=== PATIENT | female | born 1970 | race Hispanic/Latino ===

== ENCOUNTER 2019-09-13 07:14 | Day surgery (SDC) | payer BC ==
[2019-09-12 15:30] VITALS: BP 116/61
[2019-09-12 15:51] LABS: BASOPHILS % (AUTO) 0.4 % (0.0-5.0); EOSINOPHILS % (AUTO) 0.7 % (0.0-8.0); HEMATOCRIT 35.6 % (36-48); LYMPHOCYTES % (AUTO) 21.7 % (21.0-51.0); MEAN CORPUSCULAR HEMOGLOBIN 31.9 pg (27.0-33.0); MEAN CORPUSCULAR HGB CONC 32.3 g/dL (32.0-36.0); MEAN CORPUSCULAR VOLUME 98.9 fL (79-99); MONOCYTES % (AUTO) 7.8 % (3.0-13.0); NEUTROPHILS % (AUTO) 69.2 % (40.0-77.0); PLATELET COUNT (AUTO) 263 K/uL (130-400); RED CELL DISTRIBUTION WIDTH 14.6 % (11.0-15.5); WHITE BLOOD COUNT (AUTO) 8.6 K/uL (4.8-10.8)
[2019-09-12 15:59] LABS: APPEARANCE,URINE Turbid (CLEAR); BILIRUBIN,URINE Negative (NEGATIVE); COLOR,URINE Yellow (YELLOW); GLUCOSE, URINE (UA) Negative (NEGATIVE); KETONES,URINE Negative (NEGATIVE); LEUKOCYTE ESTERASE ,URINE Small (NEGATIVE); NITRATE,URINE Negative (NEGATIVE); OCCULT BLOOD,URINE Small (NEGATIVE); PH,URINE 8.5 (5.0-8.0); PROTEIN,URINE POS 2+ mg/dL (NEGATIVE)
[2019-09-12 16:05] LABS: CREATININE 0.8 mg/dL (0.5-1.5); INR 0.97 (0.85-1.15); PARTIAL THROMBOPLASTIN TIME 25.3 SEC (26.3-35.5); POTASSIUM 4.6 mmol/L (3.5-5.1); PROTHROMBIN TIME 10.2 SEC (9.6-11.6)
[2019-09-12 16:18] LABS: AMORPHOUS SEDIMENT,UR Many /LPF (None Seen); BACTERIA,URINE Few /HPF (None Seen); SQUAMOUS EPITHELIAL CELL,UR None Seen /HPF (0-2)
--- NOTE | 2019-09-12 19:48 | NUR ---
NOTIFIED DR. MCCARTNEY OF ABNORMAL UA LABS, NO NEW ORDERS, OK TO PROCEED.
[2019-09-13] VITALS (9 sets, daily range): BP systolic 93–108; BP diastolic 51–72
[~2019-09-13] VITALS: Ht 162.6 cm; Wt 69.9 kg
[~2019-09-13 07:14] MED LIST: BACL10TA PO; CELEBREX; GABAPENTIN; LEVO100T12 PO; NAPR-1023 PO; SODIUM CHLORIDE 0.9% 500ML 500 ML IV SCH
--- NOTE | 2019-09-13 07:20 | NUR ---
ASSESSMENT PT HERE FOR PROCEDURE. DENIES ANY PAIN, SOB AT THIS TIME.
[2019-09-13] MEDS ORDERED: HEPARIN SODIUM 1000UNIT/ML 10ML VIAL ONE (08:21)
[2019-09-13] MEDS ORDERED: NITROGLYCERIN 5 MG/ML 10 ML VIAL IV ONE (08:22)
[2019-09-13] MEDS ORDERED: FENTANYL CITRATE PF 50 MCG/1 ML 2ML VIAL ONE (08:22)
[2019-09-13] MEDS ORDERED: MIDAZOLAM HCL 1 MG/ML 2ML VIAL ONE (08:22)
[2019-09-13] MEDS ORDERED: LIDOCAINE HCL 2% 20ML ONE (08:23)
[2019-09-13] MEDS ORDERED: NICARDIPINE HCL 25 MG/10 ML ML IV ONE (08:27)
[2019-09-13] MEDS ORDERED: IOHEXOL 350 MG/ML 100ML INFUS..BTL IV ONE (08:28)
[2019-09-13] MEDS ORDERED: IOHEXOL-350 50ML VIAL IV ONE (08:28)
--- NOTE | 2019-09-13 08:30 | NUR ---
PROCEDURE PT TAKEN TO PROCEDURE VIA POWER GENERATING PLANT OPERATOR STAFF BRANDY ROSALES.
[2019-09-13] MEDS ORDERED: SODIUM CHLORIDE 0.9% 1000ML 1,000 ML IV ONE (08:34)
[2019-09-13] MEDS ORDERED: FLUT15.845 NS (08:44)
[2019-09-13] MEDS ORDERED: AMIT10TA6 PO (08:44)
[2019-09-13] MEDS ORDERED: TOPI50TA24 PO (08:44)
[2019-09-13] MEDS ORDERED: PRED10TA3 PO (08:44)
[2019-09-13] MEDS ORDERED: BUPR-47 PO (08:44)
[2019-09-13] MEDS ORDERED: CLON1TAB12 PO (08:44)
--- NOTE | 2019-09-13 10:00 | NUR ---
PROCEDURE RECEIVED PT FROM DATA ENTRY ASSOCIATE STAFF BRANDY UMAÑA. PT AAOX3. INSTRUCTED ON IMPORTANCE OF KEEPING RIGHT LEG STRAIGHT AND NOT LIFTING HEAD OT LEG UP OFF OF BED. PT VERBALIZED UNDERSTANDING.
--- NOTE | 2019-09-13 13:17 | NUR ---
dischsarged. oral and written discharge instructions given to pt and pts sister. no other questions at this time.
== END 2019-09-13 13:17 | disposition home or self-care (01) ==
LOC: DAH 07:14
PROVIDERS: ATTEND Internal Medicine Cardiovascular Disease
DX: I25.10 Atherosclerotic heart disease of native coronary artery without angina pectoris (principal); R94.39 Abnormal result of other cardiovascular function study; E03.9 Hypothyroidism, unspecified; Z98.890 Other specified postprocedural states; Z90.710 Acquired absence of both cervix and uterus; Z79.899 Other long term (current) drug therapy; Z79.01 Long term (current) use of anticoagulants; Z72.89 Other problems related to lifestyle; Z83.3 Family history of diabetes mellitus
CPT/HCPCS: 36415; 71045; 80048; 81001; 85025; 85610; 85730; 93005; 93458; A4215; A4216; A4221; A4222; A4223 ×3; A4606; A4663; C1760; C1894 ×3; J1644; J2250; J3010; J3490 ×3; J7030; Q9965; Q9967; 99152; 99153; 99156; 99157

== ENCOUNTER → 2020-04-06 | Outpatient (CLI) | payer BC | END | disposition home or self-care (01) | LOC: RAH 08:45 | PROVIDERS: ATTEND Obstetrics & Gynecology | DX: Z12.31 Encounter for screening mammogram for malignant neoplasm of breast (principal) ==

== ENCOUNTER → 2022-03-31 | Outpatient (CLI) | payer OTHER ==
[~2022-03-31] MED LIST changes: +AMIT10TA6 PO; +BUPR-49 PO; +CLON1TAB12 PO; +FLUT15.845 NS; +GADOTERATE MEGLUMINE 10 MMOL/20 ML VIAL IV ONE; +PRED10TA3 PO; -SODIUM CHLORIDE 0.9% 500ML 500 ML IV SCH; +TOPI50TA24 PO
== END | disposition home or self-care (01) ==
LOC: RAH 08:53
PROVIDERS: ATTEND Family Medicine
DX: M43.22 Fusion of spine, cervical region (principal); M54.12 Radiculopathy, cervical region; Z98.1 Arthrodesis status
CPT/HCPCS: 72156; A9575

== ENCOUNTER 2022-09-27 14:30 | Emergency (ER) | payer OTHER ==
[~2022-09-27] VITALS: Ht 162.6 cm; Wt 77.6 kg
[~2022-09-27 14:30] MED LIST changes: -GADOTERATE MEGLUMINE 10 MMOL/20 ML VIAL IV ONE
[2022-09-27 15:23] LABS: BASOPHILS % (AUTO) 0.4 % (0.0-5.0); EOSINOPHILS % (AUTO) 1.2 % (0.0-8.0); HEMATOCRIT 36.8 % (36-48); LYMPHOCYTES % (AUTO) 30.7 % (21.0-51.0); MEAN CORPUSCULAR HEMOGLOBIN 31.9 pg (27.0-33.0); MEAN CORPUSCULAR HGB CONC 33.2 g/dL (32.0-36.0); MEAN CORPUSCULAR VOLUME 96.3 fL (79-99); MONOCYTES % (AUTO) 7.5 % (3.0-13.0); PLATELET COUNT (AUTO) 196 K/uL (130-400); RED BLOOD CELL COUNT(AUTO) 3.82 MIL/uL (4.00-5.50); RED CELL DISTRIBUTION WIDTH 13.9 % (11.0-15.5); WHITE BLOOD COUNT (AUTO) 8.3 K/uL (4.8-10.8)
[2022-09-27 15:30] LABS: APPEARANCE,URINE CLEAR (CLEAR); BILIRUBIN,URINE NEGATIVE (NEGATIVE); COLOR,URINE LIGHT-YELLOW (YELLOW); GLUCOSE, URINE (UA) NEGATIVE (NEGATIVE); KETONES,URINE NEGATIVE (NEGATIVE); LEUKOCYTE ESTERASE ,URINE NEGATIVE Leu/uL (NEGATIVE); NITRATE,URINE NEGATIVE (NEGATIVE); OCCULT BLOOD,URINE NEGATIVE (NEGATIVE); PROTEIN,URINE NEGATIVE (NEGATIVE); UROBILINOGEN,URINE 0.2 mg/dL (0.2-1.0)
[2022-09-27] MEDS ORDERED: 0.9%NACL 1000ML 1,000 ML IV ONE (15:30)
[2022-09-27 15:42] LABS: CREATININE 0.9 mg/dL (0.5-1.5); POTASSIUM 3.9 mmol/L (3.5-5.1)
[2022-09-27 15:46] LABS: ALBUMIN 3.9 g/dL (3.5-5.0); TOTAL PROTEIN, SERUM 7.3 g/dL (6.0-8.3)
[2022-09-27] MEDS ORDERED: KETOROLAC 30MG VIAL (30MG/ML) ONE (16:48)
[2022-09-27] MEDS ORDERED: KETOROLAC 30MG VIAL (30MG/ML) IVP ONE (17:00)
[2022-09-27] MEDS ORDERED: IOHEXOL 350 MG/ML 100ML INFUS..BTL IV ONE (17:07)
[2022-09-27] MEDS ORDERED: NA P133E22 RC (18:20)
[2022-09-27 18:25] VITALS: BP 110/57
== END 2022-09-27 18:33 | disposition home or self-care (01) ==
LOC: EDH 14:30
DX: K59.00 Constipation, unspecified (principal); E27.8 Other specified disorders of adrenal gland; M19.90 Unspecified osteoarthritis, unspecified site; M79.7 Fibromyalgia; R51.9 Headache, unspecified; Z90.710 Acquired absence of both cervix and uterus; Z79.899 Other long term (current) drug therapy; Z98.890 Other specified postprocedural states
CPT/HCPCS: 99285; 74177; 96374; 96361; 76857; 80053; 83690; 85025; 81003; 36415; J1885; Q9967

== ENCOUNTER 2023-07-31 10:46 | Emergency (ER) | payer OTHER ==
[~2023-07-31] VITALS: Ht 162.6 cm; Wt 75.7 kg
[~2023-07-31 10:46] MED LIST changes: -AMIT10TA6 PO; -BACL10TA PO; -BUPR-49 PO; -CELEBREX; -CLON1TAB12 PO; -FLUT15.845 NS; -GABAPENTIN; -LEVO100T12 PO; +LEVO50TA11 PO; -NAPR-1023 PO; -PRED10TA3 PO; -TOPI50TA24 PO
[2023-07-31 10:55] VITALS: BP 118/77; PULSE 79; RESP 20
[2023-07-31 11:45] LABS: ADD UA MICROSCOPIC NO; APPEARANCE,URINE CLEAR (CLEAR); BILIRUBIN,URINE NEGATIVE (NEGATIVE); COLOR,URINE COLORLESS (YELLOW); GLUCOSE, URINE (UA) NEGATIVE (NEGATIVE); KETONES,URINE NEGATIVE (NEGATIVE); LEUKOCYTE ESTERASE ,URINE NEGATIVE Leu/uL (NEGATIVE); NITRATE,URINE NEGATIVE (NEGATIVE); OCCULT BLOOD,URINE NEGATIVE (NEGATIVE); PH,URINE 6.5 (5.0-8.0); PROTEIN,URINE NEGATIVE (NEGATIVE); UROBILINOGEN,URINE 0.2 mg/dL (0.2-1.0)
[2023-07-31] MEDS ORDERED: DICL100T85 PO (12:14)
[2023-07-31] MEDS ORDERED: KETOROLAC 30MG VIAL (30MG/ML) IM ONE (12:30)
[2023-07-31] MEDS ORDERED: ACETAMINOPHEN WITH CODEINE 1 TAB TAB PO ONE (12:30)
== END 2023-07-31 12:23 | disposition home or self-care (01) ==
LOC: EDH 10:46
DX: M06.9 Rheumatoid arthritis, unspecified (principal); M79.7 Fibromyalgia; E03.9 Hypothyroidism, unspecified; M19.90 Unspecified osteoarthritis, unspecified site; Z90.710 Acquired absence of both cervix and uterus; Z98.890 Other specified postprocedural states
CPT/HCPCS: 99283; 81003; 81025; 96372; J1885

== ENCOUNTER 2024-02-29 14:34 | Emergency (ER) | payer OTHER ==
[~2024-02-29] VITALS: Ht 162.6 cm; Wt 81.6 kg
[~2024-02-29 14:34] MED LIST changes: +DICL100T85 PO
[2024-02-29 15:33] LABS: BASOPHILS # (AUTO) 0.08 K/uL (0.00-0.20); BASOPHILS % (AUTO) 0.8 % (0.0-5.0); EOSINOPHILS # (AUTO) 0.22 K/uL (0.00-0.70); EOSINOPHILS % (AUTO) 2.2 % (0.0-8.0); HEMATOCRIT 38.6 % (36-48); IMMATURE GRANULOCYTE ABSOLUTE 0.05 K/uL (0-1); LYMPHOCYTES # (AUTO) 3.9 K/uL (1.0-4.8); LYMPHOCYTES % (AUTO) 39.3 % (21.0-51.0); MEAN CORPUSCULAR HEMOGLOBIN 31.9 pg (27.0-33.0); MEAN CORPUSCULAR HGB CONC 33.2 g/dL (32.0-36.0); MEAN CORPUSCULAR VOLUME 96.3 fL (79-99); MONOCYTES # (AUTO) 0.8 K/uL (0.1-1.0); MONOCYTES % (AUTO) 8.1 % (3.0-13.0); NEUTROPHILS # (AUTO) 4.9 K/uL (1.8-7.7); NEUTROPHILS % (AUTO) 49.1 % (40.0-77.0); PLATELET COUNT (AUTO) 294 K/uL (130-400); RED BLOOD CELL COUNT(AUTO) 4.01 MIL/uL (4.00-5.50); RED CELL DISTRIBUTION WIDTH 13.8 % (11.0-15.5)
[2024-02-29] MEDS: SOLU-MEDROL 125MG VIAL IVP ONE (15:40)
[2024-02-29 15:41] LABS: CREATININE 0.7 mg/dL (0.5-1.0); POTASSIUM 3.1 mmol/L (3.5-5.1)
[2024-02-29] MEDS: KETOROLAC 30MG VIAL (30MG/ML) IVP ONE (15:41)
[2024-02-29 15:45] VITALS: PULSE 77; RESP 18
[2024-02-29] MEDS: ALBUTEROL 0.083% 2.5 MG/3 ML INH IH ONE (15:46)
[2024-02-29 15:50] LABS: ALBUMIN 3.8 g/dL (3.5-5.0); BILIRUBIN,TOTAL 0.3 mg/dL (0.2-1.0); TOTAL PROTEIN, SERUM 7.7 g/dL (6.0-8.3)
[2024-02-29] MEDS ORDERED: ALBUHFA IH (16:27)
[2024-02-29] MEDS ORDERED: METH4TAB3 PO (16:27)
[2024-02-29] MEDS ORDERED: BENZ-39 PO (16:27)
[2024-02-29] MEDS ORDERED: POTASSIUM BICARB/CIT AC 25 MEQ TABLET.EFF PO ONE (16:30)
[2024-02-29 16:53] VITALS: BP 114/70; PULSE 84; RESP 20; O2SAT 98
== END 2024-02-29 16:58 | disposition home or self-care (01) ==
LOC: EDH 14:34
DX: M94.0 Chondrocostal junction syndrome [Tietze] (principal); E87.6 Hypokalemia; R06.00 Dyspnea, unspecified; Z87.01 Personal history of pneumonia (recurrent); Z79.899 Other long term (current) drug therapy; Z98.890 Other specified postprocedural states
CPT/HCPCS: 99285; 96374; 71045; 96375; 84484; 80053; 85025; 87040 ×2; 83605; 36415; 93005; 94640; J2919; J1885

== ENCOUNTER 2024-05-21 13:07 | Emergency (ER) | payer OTHER ==
[~2024-05-21] VITALS: Ht 162.6 cm; Wt 76.2 kg
[~2024-05-21 13:07] MED LIST changes: +ALBUHFA IH; +BENZ-39 PO; +METH4TAB3 PO
[2024-05-21] MEDS: acetaMINOPHEN 500 MG TABLET PO ONE (13:59)
[2024-05-21] MEDS: dexaMETHasone SOD PHOSPHATE 4 MG/ML 1ML VIAL IM ONE (14:04)
[2024-05-21 14:06] LABS: RAPID GROUP A STREP negative (NEGATIVE)
[2024-05-21 14:16] LABS: INFLUENZA TYPE A Negative For Type A (NEGATIVE); INFLUENZA TYPE B Negative For Type B (NEGATIVE)
[2024-05-21 14:34] LABS: BASOPHILS # (AUTO) 0.02 K/uL (0.00-0.20); BASOPHILS % (AUTO) 0.3 % (0.0-5.0); EOSINOPHILS # (AUTO) 0.09 K/uL (0.00-0.70); EOSINOPHILS % (AUTO) 1.4 % (0.0-8.0); HEMATOCRIT 39.9 % (36-48); IMMATURE GRANULOCYTE ABSOLUTE 0.02 K/uL (0-1); LYMPHOCYTES # (AUTO) 1.3 K/uL (1.0-4.8); LYMPHOCYTES % (AUTO) 19.2 % (21.0-51.0); MEAN CORPUSCULAR HEMOGLOBIN 31.4 pg (27.0-33.0); MEAN CORPUSCULAR HGB CONC 33.3 g/dL (32.0-36.0); MEAN CORPUSCULAR VOLUME 94.3 fL (79-99); MONOCYTES # (AUTO) 0.7 K/uL (0.1-1.0); MONOCYTES % (AUTO) 9.8 % (3.0-13.0); NEUTROPHILS # (AUTO) 4.6 K/uL (1.8-7.7); PLATELET COUNT (AUTO) 186 K/uL (130-400); RED BLOOD CELL COUNT(AUTO) 4.23 MIL/uL (4.00-5.50); RED CELL DISTRIBUTION WIDTH 13.9 % (11.0-15.5); WHITE BLOOD COUNT (AUTO) 6.6 K/uL (4.8-10.8)
[2024-05-21 14:36] LABS: COVID19 (SARS ANTIGEN RAPID) POSITIVE FOR SARS AG (NEGATIVE)
[2024-05-21 14:56] LABS: CREATININE 0.7 mg/dL (0.5-1.0); POTASSIUM 3.6 mmol/L (3.5-5.1)
[2024-05-21 15:00] LABS: APPEARANCE,URINE CLEAR (CLEAR); BILIRUBIN,URINE NEGATIVE (NEGATIVE); COLOR,URINE LIGHT-YELLOW (YELLOW); GLUCOSE, URINE (UA) NEGATIVE (NEGATIVE); KETONES,URINE NEGATIVE (NEGATIVE); LEUKOCYTE ESTERASE ,URINE NEGATIVE Leu/uL (NEGATIVE); NITRATE,URINE NEGATIVE (NEGATIVE); OCCULT BLOOD,URINE NEGATIVE (NEGATIVE); PROTEIN,URINE NEGATIVE (NEGATIVE); UROBILINOGEN,URINE 0.2 mg/dL (0.2-1.0)
[2024-05-21 15:03] LABS: ADD UA MICROSCOPIC YES
[2024-05-21 15:08] LABS: MUCUS,URINE RARE LPF (None Seen); SQUAMOUS EPITHELIAL CELL,UR RARE /HPF (0-2); WBC,URINE 0-1 /HPF (0-1)
[2024-05-21] MEDS ORDERED: AZIT250T9 PO (15:14)
[2024-05-21 15:33] VITALS: BP 128/79; PULSE 97; RESP 20; O2SAT 97
== END 2024-05-21 15:38 | disposition home or self-care (01) ==
LOC: EDH 13:07
DX: U07.1 COVID-19 (principal); R05.9 Cough, unspecified; R50.9 Fever, unspecified; M19.90 Unspecified osteoarthritis, unspecified site; M79.7 Fibromyalgia; Z90.710 Acquired absence of both cervix and uterus
CPT/HCPCS: 99284; 71045; 87426; 80048; 85025; 87880; 87804 ×2; 83605; 81001; 36415; 96372; J1100

== ENCOUNTER 2025-09-08 06:33 | Observation (INO) | payer BC, OTHER ==
[2025-09-04 09:59] LABS: IMMATURE GRANULOCYTE ABSOLUTE 0.02 K/uL (0-1); NUCLEATED RED BLOOD CELLS 0.0 % (0.0-0.19); PLATELET COUNT (AUTO) 240 K/uL (130-400); RED BLOOD CELL COUNT(AUTO) 3.96 MIL/uL (4.00-5.50); RED CELL DISTRIBUTION WIDTH 12.8 % (11.0-15.5); WHITE BLOOD COUNT (AUTO) 5.5 K/uL (4.8-10.8)
--- NOTE | 2025-09-04 10:00 | NUR ---
RE: IS INITIAL IS INITIAL TEACHING DONE BY RT CHUYITA DURING PREOP.
[2025-09-04 10:09] LABS: INR 0.96 (0.85-1.15)
[2025-09-04 10:11] LABS: CREATININE 0.7 mg/dL (0.5-1.0); GLOMERULAR FILTR. RATE CALC 101.0 mL/min (>90); GLUCOSE,RANDOM 94.0 mg/dL (70-105); SODIUM SERUM 143.0 mmol/L (136-145); UREA NITROGEN, BLOOD 14.0 mg/dL (7-18)
--- NOTE | 2025-09-04 10:12 | EKG ---
[facility] Test Date: 2025-09-04 Test Time: 09:48:55 Pat Name: PLACIDO FORTUNE Department: [facility] Room: Gender: F Pick Up Worker: [id number] : [id number] Requested By: RAKESH QUINTANA Order Number: [id number] Reading MD: Karen Felix Measurements Intervals [place] Rate: 66 P: 26 OH: 177 QRS: -18 QRSD: 91 T: 11 QT: 397 QTc: 418 Interpretive Statements Sinus rhythm Low voltage, precordial leads Compared to ECG 02/29/2024 14:46:37 Low QRS voltage now present Electronically Signed On 09-04-2025 21:15:11 HARDWARE TEST ENGINEER by Karen Felix Please click the below link to view image of tracing.
[2025-09-04 10:19] VITALS: BP 107/57; PULSE 75; RESP 18; TEMP 97.3
[2025-09-08] VITALS (25 sets, daily range): BP systolic 94–137; BP diastolic 62–80; PULSE 59–131; RESP 13–18; TEMP 97.4–98.3; O2SAT 98
[~2025-09-08] VITALS: Ht 162.6 cm; Wt 75.7 kg
[2025-09-08] MEDS ORDERED: TRANEXAMIC ACID 1000MG/10ML ONE (07:52)
[2025-09-08] MEDS ORDERED: MIDAZOLAM HCL 1 MG/ML 2ML VIAL ONE (08:58)
[2025-09-08] MEDS ORDERED: LIDOCAINE PF 100MG/5ML (2%) SYRINGE 5ML ONE (09:01)
[2025-09-08] MEDS: TRANEXAMIC ACID 1000MG/10ML IV ONE (09:11)
[2025-09-08] MEDS ORDERED: PROMETHAZINE HCL 25 MG/ML 1ML AMPULE IM PRN (09:30)
[2025-09-08] MEDS ORDERED: FERROUS FUMARATE 324 MG TABLET PO PRN (09:30)
[2025-09-08] MEDS ORDERED: PoTASSium chloRIDE 20MEQ ER 20 MEQ ERTAB PO PRN (09:30)
[2025-09-08] MEDS ORDERED: PoTASSium chl 10% ELIXIR 20MEQ 20 MEQ/15 ML UDCUP PO PRN (09:30)
[2025-09-08] MEDS: 0.9%NACL 1000ML 1,000 ML IV SCH (09:30)
[2025-09-08] MEDS ORDERED: BACLOFEN 10 MG TABLET PO PRN (10:00)
[2025-09-08] MEDS: LACTATED RINGERS 1000ML 1,000 ML IV ONE (10:13)
--- NOTE | 2025-09-08 12:39 | NUR ---
ADMISSION PATIENT ARRIVED TO UNIT FROM RECOVERY ROOM IN 07/11 PAIN TO RIGHT KNEE. ADMINISTERED NORCO 5/325MG 2 TABS PO ORDERED. PLACED ON NS 100ML/HR. PLACED ON SCDS. ICE BAGS PROVIDED. EDUCATED PATIENT ON THE IMPORTANCE OF INCENTIVE SPIROMETER USE, TO USE 10 TIMES Q1H. PATIENT VERBALIZED UNDERSTANDING. VITAL SIGNS STABLE.
[2025-09-08] MEDS: HYDROcodone/APAP 5/325 1 TAB TABLET PO PRN (12:58)
--- NOTE | 2025-09-08 13:06 | HMCIMG ---
EXAM: Xray Right Knee TECHNIQUE: 2 View. CLINICAL HISTORY: S/P RT TKA SURGERY (Hx) / S/P RT TKA SURGERY COMPARISON: No previous Xray Right Knee FINDINGS: Bones and Joint: Status post total knee arthroplasty with patellar resurfacing. Prosthetic components are in optimal position and alignment. No evidence of fracture, dislocation, or hardware loosening. Postoperative Changes: Acute postoperative changes noted, including; soft tissue swelling and post-surgical emphysema. No abnormal fluid collection or bernice-prosthetic latency. Soft Tissues: No suspicious calcification. IMPRESSION 1. Status post total knee arthroplasty with patellar resurfacing. 2. Prosthetic device in optimal position. 3. Postoperative changes present, including subcutaneous emphysema and soft tissue swelling, consistent with recent surgery. 4. No evidence of hardware complication, fracture, or dislocation. 5. Recommend routine postoperative follow?up and correlation with clinical recovery. /[place]
--- NOTE | 2025-09-08 16:37 | OP ---
Operative Note: DATE OF PROCEDURE: 09/08/25 PREOPERATIVE DIAGNOSIS: Right knee osteoarthritis. POSTOPERATIVE DIAGNOSIS: Right knee osteoarthritis. PROCEDURE PERFORMED: Right knee total knee arthroplasty. SURGEON: Gely Claudio MD CAMPGROUND HAND: Pravin Henderson. ANESTHESIA: General with adductor canal block. ANESTHESIA: MACHINE VENEER REPAIRER Richmond Kimbrough. ESTIMATED BLOOD LOSS: 50cc. COMPLICATIONS: None. DRAINS: None. SPECIMENS REMOVED: resected bone. Not sent to pathology. IMPLANTS: [employer] II BCS size 5 Oxinium femur, size 3 tibial base plate, 35 x 7.5 mm patella, 9 mm polyethylene STATEMENT OF MEDICAL NECESSITY: The patient is a 55-year-old female who suffers from right knee osteoarthritis failing conservative management. After discussion of the risks, benefits, and alternatives with the patient, they voluntarily agreed to undergo the aforementioned procedure. DESCRIPTION OF PROCEDURE: Patient was properly identified in the preoperative holding area. Surgical site marking was verified and surgery consent reviewed. The patient was then taken to the operating room and placed in supine position on the OR table. After induction of general anesthesia, preoperative antibiotics were given, all bony prominences were well-padded, and a well padded tourniquet was applied but not inflated at this time. The right lower extremity was then prepped and draped in usual sterile fashion. Surgical time out was done verifying correct surgery, side, site, and location to be performed. We then began the procedure by exsanguinating the limb using an Esmarch and inflating the tourniquet to 350 mmHg. At this point, we made an anterior midline incision using a 10 blade, coming down sharply the level of the fascia. Skin flaps were elevated medially and laterally. We then obtained a clean 10 blade and performed a standard medial parapatellar arthrotomy. We excised the infrapatellar fat pad. We performed our soft tissue releases off of the tibia. We transected the ACL and removed the anterior portion of the medial & lateral meniscus. We then brought the knee into hyperflexion with the patella everted. We used our entry reamer to enter the femoral canal. We then placed our intramedullary cutting guide for our distal femoral cutting block. We then performed our distal femoral osteotomy ensuring appropriate rotation and removed the bony wafer. We then removed these pins and block and then used jig 2 to size the distal femur with the after mentioned size found. We then placed our 5-in-1 cutting block in 3 degrees of external rotation and took our 5 cuts ensuring to protect the patellar tendon and the collateral ligaments. We then removed the cutting block and our bony fragments using a curved osteotome. We then placed our PCL retractor subluxating the tibia anteriorly. Using an extra medullary tibial cutting guide, we hung the block for our proximal tibial cut taking 2 mm off the more diseased portion. Prior to pinning this block in place, we ensured appropriate varus/valgus alignment and posterior slope similar to the coeur d'alene slope of the patient's knee. We then performed our proximal tibial osteotomy and removed the bony wafer using Bovie electrocautery to release any remaining soft tissue attachments. We then used our tibial sizing paddle and checked once more for varus & valgus alignment and found this to be appropriate. At this point, we pinned our tibial paddle in place. We then removed the PCL retractor and subluxated the tibia posteriorly while we placed our femoral trial component. We then finished preparing the notch with the reamer and box chisel. The notch portion of the trial femoral component was then placed. A posterior stabilized polyethylene, size 9 trial was placed. The knee was then taken through range of motion and found to have stable full range of motion. We then placed a bump under the ankle and everted the patella to perform our freehand cut of the undersurface the patella. We then sized our patella and reamed to the lug holes for this. We placed our trial patellar component and begin to take the knee through range of motion. The patella had lateral tracking that improved with the a small lateral release. At this point we began removing our trial components and punched the tibial keel prior to r emoving our tibial trial component. Final components were opened and cement was mixed on the back table while we injected local cocktail in the posterior capsule. We then thoroughly irrigated out the bone and dried the bony surfaces. We cemented our tibial component in place ensuring to remove excess cement and placed our trial polyethylene. We then cemented our femoral component in place once again taking time to ensure excess cement was removed leg was brought into full extension to help squeeze t he excess cement from around the femoral component. We then brought the knee back in a flexion to remove this portion of the cement at this point we placed the ankle in a bump thoroughly irrigated off the patellar component and cemented our patellar component in standard fashion again removing excess cement. While we waited for the cement to cure, we thoroughly irrigated out the wound with normal saline. Once our cement had cured, we took the knee through a range of motion and found full and stable range of motion. We then elected to use the size 9 polyethylene and removed our trial polyethylene. We impacted our final polyethylene component in place in standard fashion and took the knee through a range of motion check once more. This was satisfactory so we began to repair the arthrotomy using #1 Vicryl in interrupted [id number] fashion. Subcutaneous tissue was repaired using 2-0 Vicryl. Running subcuticular 3-0 Monocryl stitch with Dermabond placed over this for the skin. We then applied a foam barrier dressing and a pressure dressing consisting of 4 x 4's fluffs and an Nadeem wrap. The tourniquet was then deflated. Patient was awakened from anesthesia, and they were taken to the recovery room in stable condition. GELY CLAUDIO MD Sep 08, 2025 16:37
--- NOTE | 2025-09-08 17:30 | NUR ---
ORTHO COORDINATOR: TEACHING REGARDING DVT AND PNEUMONIA PREVENTION, PAIN EXPECTATIONS AND PAIN MANAGEMENT. PATIENT IN BED, ICE PACK TO R KNEE. B SCD SLEEVES PRESENT AND FUNCTIONING. INCENTIVE SPIROMETER ON BEDSIDE TRAY. PATIENT RETURN DEMONSTRATED PROPER USE OF INCENTIVE SPIROMETER AND VERBALIZED PROPER FREQUENCY OF USE FOR DEVICE, RATIONALE PROVIDED. PATIENT RETURN DEMONSTRATED PROPER FOOT FLEXION AND EXTENSION EXERCISES, RATIONALE PROVIDED. PAIN MANAGEMENT STRATEGY REVIEWED. SCHEDULED AND PRN PAIN MEDICATIONS REVIEWED. NUMERIC PAIN SCALE REVIEWED. PATIENT INSTRUCTED TO REQUEST ALL PAIN MEDICATIONS AND PROVIDED A NUMERIC PAIN VALUE AND TYPE OF PAIN. SET EXPECTATION FOR PATIENT TO SHOWER TOMORROW, RATIONALE PROVIDED. PATIENT INTENDS TO DISCHARGE HOME WITH HOME HEALTH PHYSICAL THERAPY. HOME HEALTH PHYSICAL THERAPY REVIEWED. NO ADDITIONAL QUESTIONS OR CONCERNS AT THIS TIME. PATIENT CURRENTLY RATES PAIN 8/10 MUSCLE SPASMS. PRIMARY NURSE NOTIFIED OF CURRENT PAIN LEVEL AND TYPE OF PAIN. PRIMARY NURSE ACKNOWLEDGED COMMUNICATION.
[2025-09-08] MEDS: CYCLOBENZAPRINE HCL 10 MG TABLET PO PRN (18:00)
[2025-09-08] MEDS: PROGESTERONE MICRONIZED 100 MG PO SCH (20:38)
[2025-09-08] MEDS ORDERED: NON-FORMULARY MEDICATION 1 EACH (Fexofenadine/Pseudoephedrine (Allegra-D 24 Hour Tablet) 1 PO SCH (21:00)
[2025-09-09] VITALS: BP 122/69; PULSE 69; RESP 18; TEMP 98.4
[2025-09-09 03:47] LABS: NUCLEATED RED BLOOD CELLS 0.0 % (0.0-0.19); PLATELET COUNT (AUTO) 206.0 K/uL (130-400); RED BLOOD CELL COUNT(AUTO) 3.1 MIL/uL (4.00-5.50); RED CELL DISTRIBUTION WIDTH 13.2 % (11.0-15.5); WHITE BLOOD COUNT (AUTO) 11.0 K/uL (4.8-10.8)
[2025-09-09 03:52] LABS: CREATININE 0.7 mg/dL (0.5-1.0); GLOMERULAR FILTR. RATE CALC 101.0 mL/min (>90); GLUCOSE,RANDOM 129.0 mg/dL (70-105); SODIUM SERUM 138.0 mmol/L (136-145); UREA NITROGEN, BLOOD 7.0 mg/dL (7-18)
[2025-09-09 04:00] VITALS: BP_SYST 102; BP_SYST 122; BP_DIAS 57; BP_DIAS 69; PULSE 54; PULSE 69; RESP 18; TEMP 98; TEMP 98.4
[2025-09-09] MEDS: CALCIUM CARB 500MG PO PRN (06:08)
[2025-09-09 08:00] VITALS: BP 99/58; PULSE 78; RESP 17; TEMP 98.6
--- NOTE | 2025-09-09 08:10 | PN ---
Ortho postop day one. This morning the patient is awake alert and oriented. She is seated in bed but states she had been OOB earlier. Discussed would like for her to spend more time out of bed in a chair alternating flexion and extension with use of foot stool. Voiced understanding. Reporting adequate pain control at this time but admits that her pain tolerance is very low. Vital signs have remained stable. Afebrile. Voiding on her own and passing gas. No BM yet. Laboratory results reviewed. Noted to have a drop in hemoglobin and hematocrit as expected after TKA. Patient currently is asymptomatic. We will continue monitor and address per protocol as necessary. Operative findings discussed with the patient Nadeem bandage is removed. Dressing is intact. Gastrocnemius soft nontender. Reinforced incentive spirometry. SCD stockings are currently present and on. Ice to operative site. Ambulated yesterday several feet with physical therapy and is pending physical therapy this morning. Anticipated discharge goal is home health/PT. Assessment: Status post right total knee arthroplasty. Acute postoperative blood loss anemia. Plan: Continue with Dr. Claudio's TKA protocol and discharge planning. Acute postoperative blood loss anemia addressed with the protocol as necessary Vitals/Labs Vital Signs Date Time Temp Pulse Resp B/P (MAP) Pulse Ox O2 Delivery O2 Flow Rate FiO2 09/09/25 04:00 98.1 54 18 102/57 93 Room Air 09/08/25 20:00 0 21 Laboratory Tests 09/09/25 03:29 Medications Current Medications Cefazolin Sodium 2 gm STK-MED ONCE .ROUTE; Start 09/08/25 at 07:00; Stop 09/08/25 at 07:01; Status DC Lactated Ringer's 1,000 ml @ As Directed STK-MED ONCE IV Last administered on 09/08/25at 10:13; Start 09/08/25 at 07:00; Stop 09/08/25 at 07:01; Status DC Tranexamic Acid 1,000 mg STK-MED ONCE .ROUTE; Start 09/08/25 at 07:52; Stop 09/08/25 at 07:52; Status DC Ketorolac Tromethamine 30 mg STK-MED ONCE .ROUTE; Start 09/08/25 at 07:52; Stop 09/08/25 at 07:52; Status DC Ropivacaine 150 mg STK-MED ONCE .ROUTE; Start 09/08/25 at 07:52; Stop 09/08/25 at 07:53; Status DC Midazolam HCl 2 mg STK-MED ONCE .ROUTE; Start 09/08/25 at 08:58; Stop 09/08/25 at 08:58; Status DC Lidocaine HCl 100 mg STK-MED ONCE .ROUTE; Start 09/08/25 at 09:01; Stop 09/08/25 at 09:02; Status DC Ketamine HCl 50 mg STK-MED ONCE .ROUTE; Start 09/08/25 at 09:02; Stop 09/08/25 at 09:02; Status DC Propofol 200 mg STK-MED ONCE IV; Start 09/08/25 at 09:02; Stop 09/08/25 at 09:02; Status DC Rocuronium Pool 50 mg STK-MED ONCE .ROUTE; Start 09/08/25 at 09:02; Stop 09/08/25 at 09:02; Status DC Fentanyl Citrate 100 mcg STK-MED ONCE .ROUTE; Start 09/08/25 at 09:02; Stop 09/08/25 at 09:02; Status DC Ropivacaine 150 mg STK-MED ONCE .ROUTE; Start 09/08/25 at 09:06; Stop 09/08/25 at 09:06; Status DC Ondansetron HCl 4 mg AD PRN IVP; Start 09/08/25 at 09:30; Stop 09/08/25 at 12:45; Status DC Metoclopramide HCl 10 mg AD PRN IVP; Start 09/08/25 at 09:30; Stop 09/08/25 at 12:45; Status DC Promethazine HCl 25 mg AD PRN IM; Start 09/08/25 at 09:30; Stop 09/08/25 at 12:45; Status DC Ketorolac Tromethamine 30 mg AD PRN IV; Start 09/08/25 at 09:30; Stop 09/08/25 at 12:45; Status DC Morphine Sulfate 2 mg AD PRN IVP; Start 09/08/25 at 09:30; Stop 09/08/25 at 12:45; Status DC Fentanyl Citrate 25 mcg Q5MIN PRN IVP Last administered on 09/08/25at 12:02; Start 09/08/25 at 09:30; Stop 09/08/25 at 12:45; Status DC Naloxone HCl 0.1 mg AD PRN IVP; Start 09/08/25 at 09:30; Stop 09/08/25 at 12:45; Status DC Ropivacaine 150 mg STK-MED ONCE IJ Last administered on 09/08/25at 08:56; Start 09/08/25 at 08:56; Stop 09/08/25 at 09:38; Status DC Sodium Chloride 1,000 ml @ 100 mls/hr Q10H IV Last administered on 09/09/25at 06:02; Start 09/08/25 at 09:30; Stop 09/09/25 at 09:29 Polyethylene Glycol 17 gm DAILY PO; Start 09/09/25 at 09:00; Stop 10/09/25 at 08:59 Bisacodyl 10 mg DAILY PRN RC; Start 09/11/25 at 09:30; Stop 10/11/25 at 09:29 Ketorolac Tromethamine 15 mg Q6H PRN IV; Start 09/09/25 at 09:30; Stop 09/14/25 at 09:29 Ferrous Fumarate 324 mg DAILY PRN PO; Start 09/08/25 at 09:30; Stop 10/08/25 at 09:29 Ondansetron HCl 4 mg Q6H PRN IVP; Start 09/08/25 at 09:30; Stop 10/08/25 at 09:29 Calcium Carbonate 500 mg Q12H PRN PO Last administered on 09/09/25at 06:08; Start 09/08/25 at 09:30; Stop 10/08/25 at 09:29 Cefazolin Sodium 2 gm Q8H IVP; Start 09/08/25 at 14:30; Stop 09/08/25 at 14:29; Status DC Cyclobenzaprine HCl 5 mg Q8H PRN PO Last administered on 09/08/25at 18:00; Start 09/08/25 at 09:30; Stop 10/08/25 at 09:29 Gabapentin 100 mg TID PO Last administered on 09/08/25at 20:37; Start 09/08/25 at 14:00; Stop 10/08/25 at 13:59 Aspirin 325 mg DAILY PO; Start 09/09/25 at 09:00; Stop 10/09/25 at 08:59 Ketorolac Tromethamine 15 mg Q8H IV Last administered on 09/09/25at 01:07; Start 09/08/25 at 09:30; Stop 09/09/25 at 01:31; Status DC Docusate Sodium 100 mg BID PO Last administered on 09/08/25at 20:38; Start 09/08/25 at 21:00; Stop 10/08/25 at 20:59 Potassium Chloride 100 ml @ 100 mls/hr AD PRN IV; Start 09/08/25 at 09:30; Stop 10/08/25 at 09:29 Potassium Chloride 20 meq AD PRN PO; Start 09/08/25 at 09:30; Stop 10/08/25 at 09:29 Potassium Chloride 20 meq AD PRN PO; Start 09/08/25 at 09:30; Stop 10/08/25 at 09:29 Tramadol HCl 50 mg Q6H PRN PO; Start 09/08/25 at 09:30; Stop 09/13/25 at 09:29 Acetaminophen/ Hydrocodone Bitart Q4H PRN PO Last administered on 09/09/25at 06:09; Start 09/08/25 at 09:30; Stop 09/13/25 at 09:29 Celecoxib 200 mg BID PO Last administered on 09/08/25at 20:37; Start 09/08/25 at 21:00; Stop 10/08/25 at 20:59 Levothyroxine Sodium 50 mcg SYN PO Last administered on 09/09/25at 06:09; Start 09/09/25 at 06:30; Stop 10/09/25 at 06:29 Baclofen 20 mg TID PRN PO; Start 09/08/25 at 10:00; Stop 10/08/25 at 09:59 Cetirizine HCl 10 mg DAILY PO; Start 09/09/25 at 09:00; Stop 10/09/25 at 08:59 Home Med DAILY PO; Start 09/09/25 at 09:00; Stop 10/09/25 at 08:59 Miscellaneous Medication 1 each HS PO; Start 09/08/25 at 21:00; Stop 09/08/25 at 10:02; Status DC Home Med HS PO; Start 09/08/25 at 21:00; Stop 10/08/25 at 20:59 Dexamethasone 4 mg ONCE ONCE PO; Start 09/08/25 at 09:30; Stop 09/08/25 at 09:46; Status DC Ketorolac Tromethamine 30 mg STK-MED ONCE IVP Last administered on 09/08/25at 08:55; Start 09/08/25 at 08:55; Stop 09/08/25 at 09:38; Status DC Cefazolin Sodium 2 gm STK-MED ONCE IVPB Last administered on 09/08/25at 09:06; Start 09/08/25 at 09:06; Stop 09/08/25 at 09:38; Status DC Tranexamic Acid 1,000 mg STK-MED ONCE IV Last administered on 09/08/25at 09:11; Start 09/08/25 at 09:11; Stop 09/08/25 at 09:38; Status DC Fentanyl Citrate 100 mcg STK-MED ONCE .ROUTE; Start 09/08/25 at 10:37; Stop 09/08/25 at 10:37; Status DC Fentanyl Citrate 100 mcg STK-MED ONCE .ROUTE; Start 09/08/25 at 11:43; Stop 09/08/25 at 11:43; Status DC Ketorolac Tromethamine 15 mg STK-MED ONCE .ROUTE; Start 09/08/25 at 11:50; Stop 09/08/25 at 11:50; Status DC Fentanyl Citrate 100 mcg STK-MED ONCE .ROUTE; Start 09/08/25 at 11:59; Stop 09/08/25 at 11:59; Status DC Hydroxyzine HCl 25 mg Q8H6 PRN PO; Start 09/08/25 at 14:30; Stop 09/08/25 at 14:24; Status DC Cefazolin Sodium 2 gm Q8H IVP Last administered on 09/09/25at 01:02; Start 09/08/25 at 17:00; Stop 09/09/25 at 01:01; Status DC Hydroxyzine HCl 25 mg Q8H6 PRN PO Last administered on 09/08/25at 14:39; Start 09/08/25 at 15:00; Stop 09/08/25 at 16:28; Status DC Hydroxyzine HCl 25 mg Q8H PO Last administered on 09/08/25at 22:47; Start 09/08/25 at 23:00; Stop 10/08/25 at 14:59 Pantoprazole Sodium 40 mg DAILY PO; Start 09/09/25 at 09:00; Stop 10/09/25 at 08:59 ROSINA HUDSON [facility] Sep 09, 2025 08:10
[2025-09-09] MEDS: CEVIMELINE HCL 30 MG PO SCH (09:00)
[2025-09-09] MEDS: ASPIRIN 325MG EC TAB PO SCH (09:02)
--- NOTE | 2025-09-09 11:00 | NUR ---
AMY CM MET WITH PT AND SPOUSE THIS MORNING, INITIAL ASSESSMENT DONE. PATIENT IS INDEPENDENT PRIOR TO SURGERY, LIVES AT HOME WITH HER AND ADULT CHILDREN. PATIENT VERBALIZED SHE HAS A WALKER, SHOWER CHAIR, CANE. DENIES ANY OTHER EQUIPMENT/SERVICES. FEELS SAFE TO GO BACK [place], STILL DRIVE, SPOUSE ABLE TO ASSIST WITH TRANSPORTATION AND NEEDS NECESSARY. DISCUSSED MD RECOMMENDATIONS FOR HOME W/HH FOR PT AND PT WILL NEED A STANDARD WALKER. PT AGREEABLE, CONSENT SIGNED NICOLE FOR ANY [facility] AND DME. [facility] HOME W/HH & DME ONCE APPROVED. CM TO CONTINUE TO FOLLOW UP.
[2025-09-09 12:00] VITALS: BP 123/65; PULSE 73; RESP 16; TEMP 98
--- NOTE | 2025-09-09 13:50 | NUR ---
PAIN ASSESSMENT SPOKE WITH PATIENT REGARDING MEDICATING PAIN LEVEL PRIOR TO AMBULATING WITH PHYSICAL THERAPY. PATIENT STATED "I DON'T THINK I NEED PAIN MEDICATION RIGHT NOW. I'LL LET YOU KNOW AFTERWARDS IF I NEED SOMETHING".
[2025-09-09 15:02] VITALS: O2SAT 98
[2025-09-09 16:00] VITALS: BP 126/61; PULSE 65; RESP 16; TEMP 98.5
--- NOTE | 2025-09-09 16:00 | NUR ---
ORTHO COORDINATOR: REINFORCED TEACHING. PATIENT ASSISTED TO RESTROOM, WITH MINIMAL ASSISTANCE. DRESSING TO RIGHT KNEE CLEAN, DRY AND INTACT. PATIENT REPORTS SHOWERING TODAY. PAIN CONTROLLED. PATIENT APPROVED FOR HOME HEALTH PHYSICAL THERAPY, PROCESS AND EXPECTATIONS REVIEWED. PATIENT ENCOURAGED TO CONTINUE INCENTIVE SPIROMETRY UNTIL REACHED PRE SURGERY ACTIVITY LEVEL, TO CONTINUE PREMEDICATING PRIOR TO PHYSICAL THERAPY SESSIONS AND PERIODS OF HIGH ACTIVITY, TO CONTINUE FOOT FLEXION AND EXTENSION EXERCISES, TO CONTINUE AMBULATING AND REMAINING HYDRATED. PATIENT VERBALIZED UNDERSTANDING TO ALL INSTRUCTIONS. WILL LOAN A WALKER. NO ADDITIONAL QUESTIONS OR CONCERNS.
--- NOTE | 2025-09-09 17:59 | NUR ---
[facility] CALLED [facility] REGARDING GIVING REPORT ABOUT PATIENT. WAS TOLD NURSE TRAINING PROJECT MANAGER WAS TO GIVE ME A CALL BACK. NO REPORT GIVEN NO ONE WAS AVAILABLE TO RECEIVE REPORT PER SENIOR GL ACCOUNTANT.
--- NOTE | 2025-09-09 18:24 | NUR ---
PATIENT AND AWARE OF NEW SCHEDULED AND PRN PAIN MEDICATIONS FOR SPACE SCIENCES DIRECTOR AT [facility]. PATIENT STATED, "I UNDERSTAND, MY WILL PICK PRESCRIBED MEDICATIONS. I HAVE NO PAIN RIGHT NOW."
--- NOTE | 2025-09-09 18:45 | NUR ---
DISCHARGE PATIENT DISCHARGED PER MD. PERIPHERIAL IV IS REMOVED. DISCHARGE INSTRUCTIONS GIVEN, NEW PRESCRIPTIONS PRINTED. PATIENT VERBALIZED UNDERSTANDING. PATIENT AWARE OF FOLLOW UP APPOINTMENT WITH DR. QUINTANA. [facility] TO FOLLOW UP AT HOME. PATIENT LEFT VIA WHEELCHAIR TO PRIVATE CAR WITH AT SIDE.
--- NOTE | 2025-09-09 20:00 | NUR ---
[facility] CALLED TO [facility] AGAIN TO GIVE REPORT ABOUT PATIENT EXPECTING TO RECEIVE HOME HEALTH TOMORROW 09/10/2025. WAS TOLD NURSE DIRECTOR MARKETING ANALYTICS WOULD GIVE A PHONE CALL BACK. STILL WAITING FOR CALL BACK.
--- NOTE | 2025-09-09 23:06 | NUR ---
[facility] CALLED BACK. GAVE REPORT TO SHERRIE NAVA.
== END 2025-09-09 18:45 | disposition home or self-care (01) ==
LOC: DAH 06:33 → DAHIP 06:34 → DAH 06:34 → 4BH 12:35
PROVIDERS: ADMIT Student in an Organized Health Care Education/Training Program; ATTEND Student in an Organized Health Care Education/Training Program
DX: M17.11 Unilateral primary osteoarthritis, right knee (principal); M25.561 Pain in right knee; D62 Acute posthemorrhagic anemia; K21.9 Gastro-esophageal reflux disease without esophagitis; E07.9 Disorder of thyroid, unspecified; Z79.899 Other long term (current) drug therapy; Z98.890 Other specified postprocedural states
CPT/HCPCS: 82040; 80048 ×2; 85025; 85610; 85730; 84134; 86140; 36415 ×2; 93005; 87641; 27447; 96374; 96375; 73560; 97161; 97116 ×3; 96376; 85027; 97530 ×2; G0378 ×33; A4663; J7120; J3010 ×4; J3490 ×4; J2003; J2250; J2704; J1885 ×6; J2795 ×3; J0690 ×4; C1713 ×2; A4649 ×2; A4930; C1776; A6255; A4215; A4223 ×2; A4213; A4222; A4221; A4216; J2405